=== PATIENT | male | born 1960 ===

== ENCOUNTER → 2018-11-23 19:04 | Outpatient (CLI) | payer OTHER | END | disposition home or self-care (01) | LOC: LAB 19:04 | DX: R97.20 Elevated prostate specific antigen [PSA] (principal) ==

== ENCOUNTER 2018-12-14 07:24 | Outpatient (CLI) | payer OTHER | END 2018-12-14 07:32 | disposition home or self-care (01) | LOC: SONOGRAMA 07:24 | DX: R97.20 Elevated prostate specific antigen [PSA] (principal) ==

== ENCOUNTER 2020-01-03 15:19 | Outpatient (CLI) | payer OTHER | END 2020-01-03 15:26 | disposition home or self-care (01) | LOC: LAB 15:19 | DX: R97.20 Elevated prostate specific antigen [PSA] (principal) ==

== ENCOUNTER 2020-01-31 07:05 | Outpatient (CLI) | payer OTHER | END 2020-01-31 07:10 | disposition home or self-care (01) | LOC: SONOGRAMA 07:05 | DX: R97.20 Elevated prostate specific antigen [PSA] (principal) ==